=== PATIENT | female | born 1965 | race Caucasian/White ===

== ENCOUNTER → 2018-01-26 08:39 | Outpatient (CLI) | payer OTHER, SELFPAY ==
--- NOTE | 2018-01-26 | DI.US.S_ITS ---
PROCEDURE: US CHEST COMPARISON: None. INDICATIONS: SOFT TISSUE MASS ON STERNUM FINDINGS: Fatty soft tissue is present in the area of current clinical concern, targeted by the patient for sonographic evaluation. A discrete cystic or solid mass is not present. IMPRESSION: Fatty soft tissue is present in the area of current clinical concern. Ultrasound scanning may not identify the borders of a lipoma, and therefore a lipoma or normal fatty soft tissue both could produce this appearance. A liposarcoma is not suspected. If additional imaging is deemed clinically warranted followup contrast enhanced MR scanning through the area could be obtained. Dictated by: Jose Cruz Caban M.D. on 01/26/2018 at 10:14 Approved by: Jose Cruz Caban M.D. on 01/26/2018 at 10:16
== END ==
PROVIDERS: PCP Family Medicine; Visit Provider Physician Assistant Medical
DX: M79.9 Soft tissue disorder, unspecified (principal)
CPT/HCPCS: 76604

== ENCOUNTER → 2018-04-18 14:54 | Outpatient (CLI) | payer OTHER, SELFPAY ==
--- NOTE | 2018-04-18 | DI.US.S_ITS ---
PROCEDURE: US BREAST LT LIMITED COMPARISON: None. INDICATIONS: LEFT BREAST MASS FINDINGS: IMPRESSION: ADDENDUM: The patient returns today for further imaging of a painful, palpable superficial mass in the upper, inner quadrant of the left breast which patient requested additional evaluation since her most recent evaluation dated 04/18/18 given recent onset of associated pain with the palpable area of concern. On examination, this was localized to approximately the 10:00 axis, 4 cm from the nipple. On physical exam, there was a sub-5 mm superficial, mobile mass that was soft/rubbery. It was focal but not significantly different in firmness relative to other areas of the adjacent breast. This was tender to palpation. No overlying skin changes. Targeted sonographic evaluation was performed by both the process helper and the radiologist. There was initially a very subtle area of ill-defined hypoechogenicity at the 10:00 axis, 4 cm from the nipple just deep to the skin surface measuring approximately 4 x 2 x 5 mm in size. It was not well-visualized on orthogonal imaging. Additionally, this cannot be reliably reproduced by the radiologist during real-time imaging. This also appeared much less conspicuous with changing to a different frequency transducer. No abnormal vascularity within this region. No mass effect or associated disturbed echotexture. The left axilla was also interrogated and demonstrated normal morphologically appearing axillary lymph nodes. Impression: A palpable sub-5 mm superficial mass in the left breast 10:00 position, 4 cm from the nipple which does not have a mammographic correlate as well as no definite sonographic correlate. This is probably benign. Recommend continued clinical surveillance and return for short interval followup imaging in 6 months with left breast ultrasound and mammogram. Return sooner if any clinically suspicious findings in the interim. Findings and recommendations were discussed thoroughly with the patient and her during today's visit. Overall imaging impression: BI-RADS 3, probably benign. Dictated by: Cezar Osorio M.D. on 05/04/2018 at 17:57 Approved by: Cezar Osorio M.D. on 05/04/2018 at 18:13
--- NOTE | 2018-04-18 | DI.MG.S_ITS ---
BILATERAL DIGITAL DIAGNOSTIC MAMMOGRAM 3D/2D: 04/18/2018 CLINICAL: Left breast mass. Comparison is made to exams dated: 08/21/2014 mammogram and 12/22/2010 mammogram - [facility]. There are scattered fibroglandular elements in both breasts. No significant masses, calcifications, or other findings are seen in either breast. IMPRESSION: INCOMPLETE: NEEDS ADDITIONAL IMAGING EVALUATION There is no mammographic abnormality seen in the left breast to correspond with the palpable abnormality and pain, however, targeted ultrasound of the left breast is recommended and will be performed immediately following this exam. This exam was interpreted at Station ID: [id number]. NOTE: For mammograms, a report in lay terms will be sent to the patient. Approximately 15% of breast malignancies will not be visualized mammographically. In the management of a palpable breast mass, a negative mammogram must not discourage biopsy of a clinically suspicious lesion. Electronically Signed By: Zuly Ortega M.D. lk/:04/18/2018 15:34:29 letter sent: Additional Imaging Needed ACR BI-RADS Category 0: Incomplete 3340F
== END ==
PROVIDERS: Visit Provider Nurse Practitioner Gerontology
DX: R92.8 Other abnormal and inconclusive findings on diagnostic imaging of breast (principal); N63.20 Unspecified lump in the left breast, unspecified quadrant
CPT/HCPCS: 76642; 77066; G0279

== ENCOUNTER → 2023-11-06 | Outpatient (CLI) | payer OTHER, SELFPAY ==
--- NOTE | 2023-11-06 13:55 | DI.MG.S_ITS ---
Patient Name: WENDY WONG date: 1965 Sex: F Attending Physician: Avery Indications: Date: 11/06/2023 14:05 At the request of: JADON RAMIREZ Procedure: MM diagnostic mammo BI BILATERAL DIGITAL DIAGNOSTIC MAMMOGRAM 3D/2D: 11/06/2023 CLINICAL: Bilateral Breast pain. Comparison is made to exams dated: 04/18/2018 mammogram - [facility], 08/21/2014 mammogram, and 12/22/2010 mammogram - [facility]. There are scattered areas of fibroglandular density in both breasts (category b / 25%-50% glandular tissue). No significant masses, calcifications, or other findings are seen in either breast. IMPRESSION: NEGATIVE Patient reports left diffuse breast pain today. There is no abnormality seen in the left breast to codie espond with the diffuse pain, however, clinical correlation and clinical followup are recommended. There is no mammographic evidence of malignancy. Return to annual mammogram screening schedule is recommended. Based on the Tyrer Cuzick model (a risk assessment model) the patient's lifetime risk is 3.6% and her 10 year risk is 1.2%. According to the ACR, ACS, and NCCN guidelines, an annual breast MRI exam along with mammogram is recommended if the patient's lifetime risk is 20% or greater. This exam was interpreted at Station ID: [id number]. Continued Report - Page 2 of 2 Patient Name: WENDY WONG date: 1965 Sex: F Attending Physician: Aevry Indications: Date: 11/06/2023 14:05 At the request of: JADON RAMIREZ Procedure: MM diagnostic mammo BI NOTE: For mammograms, a report in lay terms will be sent to the patient. Approximately 15% of breast malignancies will not be visualized mammographically. In the management of a palpable breast mass, a negative mammogram must not discourage biopsy of a clinically suspicious lesion. Electronically Signed By: Felix Walton M.D. lc/:11/06/2023 14:05:52 letter sent: Clinical Evaluation ACR BI-RADS Category 1: Negative 3341F
== END ==
LOC: MAMMO 13:34
PROVIDERS: PCP Physician Assistant; Referring Provider Physician Assistant; Visit Provider Physician Assistant
DX: N64.4 Mastodynia (principal); R92.323 Mammographic fibroglandular density, bilateral breasts
CPT/HCPCS: 77066; G0279

== ENCOUNTER → 2025-02-05 08:30 | Outpatient (CLI) | payer OTHER, SELFPAY ==
--- NOTE | 2025-02-05 | DI.MRI.S_ITS ---
PROCEDURE: MR OPTIC NRV WWO CON INDICATIONS: new onset severe unilateral headaches TECHNIQUE: Noncontrast sagittal T1 spin echo, axial FLAIR, axial gradient echo, axial diffusion and ADC acquired through the brain. Coronal STIR, thin-slice axial T1 spin echo through the orbits. After the administration of contrast, thin-slice axial and coronal T1 spin echo with fat saturation through the orbits, axial and coronal and sagittal T1 spin echo with fat saturation through the brain. COMPARISON: None. FINDINGS: Image quality: Excellent. Orbits: Globes are symmetrical. The optic nerves are normal in size, without abnormal signal or enhancement. No retrobulbar masses or fat abnormalities. The extra- ocular muscles are normal and symmetric in appearance. Lacrimal glands are normal. Optic chiasm is normal. Periorbital soft tissues appear normal. CSF spaces: Ventricles are normal in size and shape. Basal cisterns are patent. No extra-axial fluid collections. Brain: No intracranial bleeds or mass effects. No abnormal intracranial enhancement. Periventricular T2/FLAIR hyperintense signal, nonspecific and likely representing chronic microvascular ischemic change. Bueno-white matter interface is intact. Diffusion weighted images demonstrate no acute ischemic insults. Pituitary gland appears normal, without sellar or suprasellar masses. Brainstem appears normal. Normal intravascular flow voids are present. Skull and face: Calvarial marrow is normal in signal. Sinuses: Paranasal sinuses are clear. Small left mastoid effusion.. IMPRESSION: Normal appearance of the orbits. No acute intracranial abnormalities or abnormal intracranial enhancement. Periventricular T2/FLAIR hyperintense signal which is overall nonspecific but likely representing chronic microvascular ischemic change. Dictated by: Ministerio Sims M.D. on 02/05/2025 at 10:19 Approved by: Ministerio Sims M.D. on 02/05/2025 at 10:30
--- NOTE | 2025-02-05 08:32 | DI.MRI.S_ITS ---
PROCEDURE: MR ANGIO HEAD WO CON INDICATIONS: New onset severe unilateral headaches TECHNIQUE: Noncontrast axial 3-D [id number] MR angiogram, with 3-dimensional maximum intensity projection (MIP) reformats of the internal carotid arteries and posterior circulation then performed. COMPARISON: None. FINDINGS: Image quality: Excellent. Anterior circulation: Intracranial internal carotid arteries demonstrate normal size and intraluminal flow signal. The flow within the paired anterior cerebral arteries is normal and symmetric. The flow within the middle cerebral arteries is normal and symmetric. The anterior communicating artery is seen. No stenoses, occlusions, or aneurysms. Posterior circulation: Visualized portions of the vertebral arteries demonstrate normal caliber, and join to form a normal appearing basilar artery. The flow within the posterior cerebral arteries is normal and symmetric. No stenoses, occlusions, or aneurysms. IMPRESSION: Negative MR angiogram head. Dictated by: Sari Emmanuel MD, PhD on 02/05/2025 at 9:34 Approved by: Sari Emmanuel MD, PhD on 02/05/2025 at 9:35
== END ==
LOC: MRI 08:31
PROVIDERS: PCP Physician Assistant; Referring Provider Physician Assistant; Visit Provider Physician Assistant
DX: G44.001 Cluster headache syndrome, unspecified, intractable (principal)
CPT/HCPCS: 70543; 70544; 70553; A9579